=== PATIENT | male | born 1995 | race Caucasian/White ===

== ENCOUNTER 2017-11-17 19:05 | Emergency (ER) | payer SELFPAY ==
[~2017-11-17] VITALS: Ht 182.9 cm; Wt 136.0 kg
[2017-11-17 19:20] VITALS: BP 170/99
== END 2017-11-17 19:37 | disposition left against medical advice (07) | DRG 951 ==
LOC: ED 19:05 → LWOBS 19:37 → ED 19:37
DX: Z91.19 Patient's noncompliance with other medical treatment and regimen (principal)